=== PATIENT | male | born 1985 | race Caucasian/White ===

== ENCOUNTER 2021-05-21 10:17 | Emergency (ER) | payer SELFPAY ==
[2021-05-21 10:35] VITALS: BP 129/84; PULSE 79; RESP 16; TEMP 36.4; O2SAT 99
--- NOTE | 2021-05-21 10:52 | ED.URI ---
HPI - URI/Sore Throat General Chief Complaint: Upper Respiratory Infection Stated Complaint: Cough, Sore throat Time Seen by Provider: 05/21/21 10:53 Source: patient and RN notes reviewed Mode of arrival: ambulatory Limitations: no limitations History of Present Illness HPI Narrative: 35-year-old male presents concern for sore throat, postnasal drainage, nasal congestion. Reports symptoms started yesterday. Reports yesterday he took [id number] multisymptom cold medicine with some relief. He denies fever, body aches, chills, sweats. Reports has been vaccinated for Covid in March. MD elicited complaint: cough and sore throat Related Data Home Medications Medication Instructions Recorded Confirmed No Home Medications 05/21/21 05/21/21 Allergies Allergy/AdvReac Type Severity Reaction Status Date / Time No Known Allergies Allergy Unverified 09/07/12 16:19 Review of Systems Review of Systems: CONSTITUTIONAL: Denies malaise, chills, sweats, or fever. EYES: Denies visual changes, redness, or discharge. ENT: Reports rhinorrhea, congestion, sore throat. Denies sinus pain, otalgia CARDIOVASCULAR: Denies chest pain, palpitations, or edema. RESPIRATORY: Reports cough. Denies dyspnea. GASTROINTESTINAL: Denies abdominal pain, nausea, vomiting, diarrhea SKIN: Denies rash or itching. MUSCULOSKELETAL: Denies myalgia. NEUROLOGIC: Denies headache. All systems reviewed & are unremarkable except as noted in HPI and below PMFSH Social History Social History Smoking status: Never smoker Alcohol intake: current Comments At time of signature, agree with nursing past medical, surgical, social and family history. There is no relevant family history pertinent to the presenting complaint Exam Narrative: GENERAL: Well-appearing, well-nourished, and in no acute distress. HEAD: Normocephalic EYES: PERRLA, conjunctivae clear ENT: Nares clear, clear discharge. Mucous membranes moist. TM pearly garcia with dull light reflex bilaterally; no tragal tenderness. Oropharynx not erythematous without lesions. Tonsils not enlarged and without exudate, no drooling, no hoarseness, no trismus, uvula midline. NECK: Supple. No lymphadenopathy CHEST: Clear to auscultation, breath sounds equal. No wheezing, rhonchi, rales, or stridor. No respiratory distress, speaks in full sentences. HEART: Regular rate and rhythm. No murmur heard. SKIN: Warm, dry, no rash. NEURO: Alert and oriented x3. PSYCH: Normal mood and affect Course Course Emergency Course: Patient is aware of diagnosis, understands and agrees to treatment plan. Anticipatory guidance given. Patient agrees to follow-up as directed and is aware of reasons to seek care at the emergency department. Portions of this record may have been created with voice recognition software Level of Care: Express Care Visit Vital Signs Vital signs: Vital Signs Temperature 97.6 F 05/21/21 10:35 Pulse Rate 79 05/21/21 10:35 Respiratory Rate 16 05/21/21 10:35 Blood Pressure 129/84 05/21/21 10:35 Pulse Oximetry 99 05/21/21 10:35 Temperature 97.6 F 05/21/21 10:35 Pulse Rate 79 05/21/21 10:35 Respiratory Rate 16 05/21/21 10:35 Blood Pressure 129/84 05/21/21 10:35 Pulse Oximetry 99 05/21/21 10:35 Reviewed. MDM - URI/Sore Throat MDM Narrative Medical decision making narrative: Differential diagnosis considered: Reina virus, strep pharyngitis, allergic rhinitis, upper respiratory tract infection, sinusitis, rhinosinusitis, nasopharyngitis. viral pharyngitis, otitis media, otitis externa, pneumonia, bronchitis, viral cough syndrome, viral syndrome, and influenza. Exam findings show no acute concerns or changes; patient is non-toxic appearing and is in no distress. Patient is appropriate for outpatient treatment and follow-up. Lab Data Attestation: I reviewed the patient's lab results. Critical Care Time Critical Care Time Critical Care Time: No Discharge Plan
== END 2021-05-21 11:26 | disposition home or self-care (01) ==
PROVIDERS: Emergency Provider Nurse Practitioner
DX: J06.9 Acute upper respiratory infection, unspecified (principal); Z20.822 Contact with and (suspected) exposure to COVID-19
CPT/HCPCS: 87081; 87880; 99203; G0463

== ENCOUNTER 2023-10-12 08:45 | Emergency (ER) | payer OTHER, SELFPAY ==
[2023-10-12 08:53] VITALS: BP 127/96; PULSE 129; RESP 15; TEMP 36.6; O2SAT 97
--- NOTE | 2023-10-12 09:43 | ED.GENADULT ---
[facility] - General Adult General Chief complaint: Skin/Abscess/Foreign Body Stated complaint: allergic reaction Time Seen by Provider: 10/12/23 08:56 Source: patient Mode of arrival: ambulatory Limitations: no limitations History of Present Illness HPI narrative: This is a 30-year-old male who presents to the ED with chief complaint of recurrent skin rash for the past 4 months. Reports that he has been seen by urgent care multiple times and given multiple rounds of steroids for this. States that the steroids and Benadryl do seem to help but the rash comes back whenever he finishes the course. States that he has tried to narrow down what could be causing this, removing things like detergents and skin exposures. He has determined that this is probably caused by his vape. He reports that he started vaping a few months ago and seems to have these reactions ever since. He has not stopped vaping. Denies fevers, chills, shortness of breath, nausea, vomiting, chest pain. Related Data Allergies Allergy/AdvReac Type Severity Reaction Status Date / Time No Known Allergies Allergy Unverified 10/12/23 08:45 Review of Systems Review of Systems: All systems as dictated in [facility] Social History Social History Smoking status: Never smoker Alcohol intake: current Exam Narrative: GENERAL: Well-appearing, well-nourished, and in no acute distress. HEAD: Normocephalic, atraumatic. EYES: PERRLA and EOMI. ENT: Nares clear, no rhinorrhea or epistaxis. Mucous membranes moist. Oropharynx without tonsillar hypertrophy exudate or other lesions. Airway intact. No signs of oropharyngeal or airway edema. NECK: Supple. No adenopathy or masses. CHEST: No respiratory distress. Clear to auscultation. No wheezes rales or rhonchi HEART: Regular rate and rhythm. No murmur heard. Normal peripheral pulses. ABDOMEN: Soft, nontender, nondistended, normal active bowel sounds. MSK: Normal range of motion. No edema. SKIN: Diffuse circular rash NEURO: Alert and oriented x3. No focal deficits. PSYCH: Normal mood and affect. Course Vital Signs Vital signs: Vital Signs Temperature 97.8 F 10/12/23 08:53 Pulse Rate 129 H 10/12/23 08:53 Respiratory Rate 15 10/12/23 08:53 Blood Pressure 127/96 H 10/12/23 08:53 Pulse Oximetry 97 10/12/23 08:53 Oxygen Delivery Room Air 10/12/23 08:53 Temperature 97.8 F 10/12/23 08:53 Pulse Rate 98 10/12/23 10:01 Respiratory Rate 16 10/12/23 10:01 Blood Pressure 139/86 10/12/23 10:01 Pulse Oximetry 98 10/12/23 10:01 Oxygen Delivery Room Air 10/12/23 08:53 Medical Decision Making MDM Narrative Medical decision making narrative: This is a 30-year-old male who presents to the ED with chief complaint of diffuse urticarial rash for the past couple of days. He has been dealing with this intermittently for the past few months and attributes it to likely vaping which he started a couple months ago. Vitals are normal Exam does show diffuse urticaria. Consistent with allergic reaction. No airway involvement. No angioedema He was given steroids and Pepcid here. He has yet to discontinue vaping. I strongly advised that he do so as this is likely the offending agent. Rx for Medrol Dosepak given. Pt will be discharged in stable condition. Return precautions given and supportive measures discussed. Pt is understanding and agreeable with plan for discharge and follow-up with PCP. Vital Signs Vital Signs: Vital Signs Temperature 97.8 F 10/12/23 08:53 Pulse Rate 129 H 10/12/23 08:53 Respiratory Rate 15 10/12/23 08:53 Blood Pressure 127/96 H 10/12/23 08:53 Pulse Oximetry 97 10/12/23 08:53 Oxygen Delivery Room Air 10/12/23 08:53 Temperature 97.8 F 10/12/23 08:53 Pulse Rate 98 10/12/23 10:01 Respiratory Rate 16 10/12/23 10:01 Blood Pressure 139/86 10/12/23 10:01 Pulse Oximetry 98 10/12/23 10:01 Oxygen Delivery Room Air 10/12/23
[2023-10-12] MEDS: predniSONE 20 MG TABLET 40 MG PO (09:58)
[2023-10-12] MEDS: FAMOTIDINE 20 MG TABLET PO (09:58)
[2023-10-12 10:01] VITALS: BP 139/86; PULSE 98; RESP 16; O2SAT 98
== END 2023-10-12 10:01 | disposition home or self-care (01) ==
PROVIDERS: Emergency Provider Physician Assistant
DX: L50.9 Urticaria, unspecified (principal); F17.290 Nicotine dependence, other tobacco product, uncomplicated
CPT/HCPCS: 99283; A9270; J7512